=== PATIENT | male | born 1940 | race Caucasian/White ===

== ENCOUNTER → 2023-12-08 09:50 | Outpatient (REF) | payer OTHER, SELFPAY | LOC: DHCBS HW 09:50 | PROVIDERS: ATTENDING PHYSICIAN Internal Medicine Cardiovascular Disease; FAMILY PHYSICIAN Family Medicine | DX: I77.810 Thoracic aortic ectasia (principal) | CPT/HCPCS: 93306 ==

== ENCOUNTER → 2024-03-13 08:37 | Outpatient (REF) | payer OTHER, SELFPAY | LOC: MRI 3T 08:37 | PROVIDERS: ATTENDING PHYSICIAN Psychiatry & Neurology Neurology; FAMILY PHYSICIAN Family Medicine | DX: R26.9 Unspecified abnormalities of gait and mobility (principal); G95.9 Disease of spinal cord, unspecified | CPT/HCPCS: 72156; A9575 ==

== ENCOUNTER → 2024-04-05 11:54 | Outpatient (REF) | payer OTHER, SELFPAY | LOC: HWRAD 11:54 | PROVIDERS: ATTENDING PHYSICIAN Psychiatry & Neurology Neurology; FAMILY PHYSICIAN Family Medicine | DX: G44.89 Other headache syndrome (principal) | CPT/HCPCS: 70450 ==

== ENCOUNTER → 2024-08-25 09:48 | Outpatient (REF) | payer OTHER, SELFPAY | LOC: PAVMRI 09:48 | PROVIDERS: ATTENDING PHYSICIAN Psychiatry & Neurology Neurology; FAMILY PHYSICIAN Family Medicine | DX: G62.9 Polyneuropathy, unspecified (principal); R26.9 Unspecified abnormalities of gait and mobility | CPT/HCPCS: 72158; A9575 ==

== ENCOUNTER → 2024-11-13 11:06 | Outpatient (REF) | payer OTHER, SELFPAY | LOC: HWRCS 11:06 | PROVIDERS: ATTENDING PHYSICIAN Internal Medicine Cardiovascular Disease; FAMILY PHYSICIAN Family Medicine | DX: I77.810 Thoracic aortic ectasia (principal) | CPT/HCPCS: 93306 ==

== ENCOUNTER → 2025-07-04 13:37 | Outpatient (REF) | payer OTHER, SELFPAY | LOC: RAD 13:37 | PROVIDERS: ATTENDING PHYSICIAN Family Medicine | DX: Z13.6 Encounter for screening for cardiovascular disorders (principal) | CPT/HCPCS: 76770 ==